=== PATIENT | male | born 1990 | race Caucasian/White ===

== ENCOUNTER 2019-06-16 12:00 | Outpatient (CLI) | payer OTHER, SELFPAY | END 2019-06-16 12:01 | disposition home or self-care (01) | LOC: SLEEP 06-17 13:13 | PROVIDERS: Family Provider Family Medicine; PCP Family Medicine; Visit Provider Family Medicine | DX: G47.33 Obstructive sleep apnea (adult) (pediatric) (principal) | CPT/HCPCS: G0399 ==

== ENCOUNTER 2020-04-15 13:11 | Emergency (ER) | payer OTHER, SELFPAY ==
[2020-04-15 13:15] VITALS: BP 149/87; PULSE 73; RESP 18; TEMP 36.3; O2SAT 98; BMI 40.7
--- NOTE | 2020-04-15 13:27 | W.ED.DENTAL ---
HPI - Dental/Oral General: Chief complaint: Dental/Oral Stated complaint: SEVERE TOOTH PAIN Time Seen by Provider: 04/15/20 13:13 Source: patient Mode of arrival: ambulatory Limitations: no limitations History of Present Illness: MD Complaint: tooth pain Onset (ago): day(s) (3) Duration: constant Severity scale (1-10): 5 Relieving factors: nothing Exacerbating factors: chewing Context: history of dental caries Associated symptoms: Reports no associated symptoms; Denies ear or mastoid pain, fever(s), gum swelling, odynophagia, sore throat or tongue swelling Treatment prior to arrival: none Review of Systems Const: Denies: fever(s) ENMT: Reports: dental pain; Denies: odynophagia or ear or mastoid pain Card: Denies: chest pain Resp: Denies: dyspnea, productive cough or non-productive cough GI: Denies: abdominal pain, nausea, vomiting, dysphagia, diarrhea or constipation Psych: Denies: suicidal ideation or homicidal ideation All/Imm: Denies: tongue swelling Physical Exam Const: COMMON NORMALS: no acute distress, average body habitus, patient oriented x3, no limitations, healthy appearing, alert and well nourished HENMT: COMMON NORMALS: normocephalic and atraumatic HEAD & SCALP: normocephalic and atraumatic FACE & SINUS: no TMJ findings MOUTH: Normal oral and palatal mucosa present, lip normal, tongue normal and Normal salivary glands and ducts present; no trismus, no restricted motion, no thickened frenulum and no TMJ findings TEETH & GINGIVA: Yes abnormal tooth and associated gingiva, Yes caries, Yes poor dentition and Yes other (there is no evidence of abscess such as induration fluctuance or pointing) TEETH & GINGIVA IMAGES: 1. THROAT: posterior oropharynx normal Resp: COMMON NORMALS: normal respiratory effort Cardio: COMMON NORMALS: regular rate and regular rhythm RATE: regular rate RHYTHM: regular rhythm Neuro: COMMON NORMALS: patient oriented x3 SENSORIUM/ORIENTATION: Yes alert Course Vital Signs: Vital signs: Vital Signs Temperature 97.3 F L 04/15/20 13:15 Pulse Rate 73 04/15/20 13:15 Respiratory Rate 18 04/15/20 13:15 Blood Pressure 149/87 04/15/20 13:15 Pulse Oximetry 98 12/12/20 13:15 MDM - Dental/Oral MDM Narrative: Medical decision making narrative: Pt is well appearing non toxic and in no acute distress. Pt has noted dental carries to area highlighting on diagram. there is no evidence of abscess such as induration fluctuance or pointing. there is no evidence of Al's angina there is some associated facial cellulities noted to right side of face. there is no difficulty swallowing no trismus no chest pain fever or shortness of breath. I will start patient on antibiotics and have him follow up with dentist. rad provided Discharge Plan Discharge Patient Disposition: Home Clinical Impression: Dental caries Condition: Stable Prescriptions: New clindamycin HCl 300 mg capsule 300 mg PO BID 7 Days Qty: 14 RF: 0 ibuprofen 800 mg tablet 800 mg PO TID Qty: 30 RF: 0 Discharge Orders: Discharge ED (Routine); Ordered 04/15/20 Ordered By: Billie Gaspar Referrals: Jagdeep Horowitz MD [Primary Care Provider] - Discharge Diet: Advance as tolerated Discharge Activity: Resume usual activity Activity Restrictions/Additional Instructions: Please take antibiotics as prescribed Please take Ibuprofen as needed Please follow up with Dentist as soon as possible Please return to ER with any worsening of symptoms as discussed Coding Level of Care Code ED Compressor Engineer for Arlin Sanders
== END 2020-04-15 13:46 | disposition home or self-care (01) ==
PROVIDERS: Emergency Provider Registered Nurse; PCP Family Medicine
DX: K02.9 Dental caries, unspecified (principal)
CPT/HCPCS: 12345; 99281

== ENCOUNTER → 2021-09-06 15:04 | Outpatient (BNVA) | payer OTHER, SELFPAY | PROVIDERS: PCP Family Medicine; Visit Provider Family Medicine | DX: J02.9 Acute pharyngitis, unspecified (principal) | CPT/HCPCS: 87070 ==

== ENCOUNTER → 2021-09-12 09:38 | Outpatient (BNVA) | payer OTHER, SELFPAY | PROVIDERS: PCP Family Medicine; Visit Provider Family Medicine | DX: E34.9 Endocrine disorder, unspecified (principal) | CPT/HCPCS: 84402; 84403 ==

== ENCOUNTER → 2022-06-18 10:26 | Outpatient (BNVA) | payer OTHER, SELFPAY | PROVIDERS: PCP Family Medicine; Visit Provider Family Medicine | DX: E34.9 Endocrine disorder, unspecified (principal); R21 Rash and other nonspecific skin eruption; E78.5 Hyperlipidemia, unspecified | CPT/HCPCS: 80053; 80061; 84403; 85025 ==

== ENCOUNTER 2022-12-12 09:03 | Outpatient (CLI) | payer OTHER, SELFPAY | END 2022-12-12 09:04 | disposition home or self-care (01) | PROVIDERS: PCP Family Medicine; Visit Provider Podiatrist Foot & Ankle Surgery | DX: B35.1 Tinea unguium (principal) | CPT/HCPCS: 36415; 80053 ==

== ENCOUNTER → 2023-08-04 09:33 | Outpatient (BNVA) | payer OTHER, SELFPAY | PROVIDERS: PCP Family Medicine; Visit Provider Family Medicine | DX: E78.5 Hyperlipidemia, unspecified (principal); E34.9 Endocrine disorder, unspecified; Z00.00 Encounter for general adult medical examination without abnormal findings | CPT/HCPCS: 80053; 80061; 84403; 85025 ==

== ENCOUNTER → 2023-10-13 11:23 | Outpatient (BNVA) | payer OTHER, SELFPAY | PROVIDERS: PCP Family Medicine; Visit Provider Nurse Practitioner Family | DX: J02.9 Acute pharyngitis, unspecified (principal) | CPT/HCPCS: 87880 ==

== ENCOUNTER → 2024-01-02 07:50 | Outpatient (BNVA) | payer OTHER, SELFPAY | PROVIDERS: PCP Family Medicine; Visit Provider Family Medicine | DX: E34.9 Endocrine disorder, unspecified (principal) | CPT/HCPCS: 80053; 84403; 84439; 84443 ==

== ENCOUNTER 2024-01-15 07:30 | Outpatient (RCR) | payer OTHER, SELFPAY | END 2024-02-02 23:59 | disposition home or self-care (01) | LOC: SPT 07:30 | PROVIDERS: PCP Family Medicine; Visit Provider Chiropractor | DX: M54.50 Low back pain, unspecified (principal) | CPT/HCPCS: 97032; 97110; 97161 ==

== ENCOUNTER → 2024-03-30 08:51 | Outpatient (BNVA) | payer OTHER, SELFPAY | PROVIDERS: PCP Family Medicine | DX: J02.9 Acute pharyngitis, unspecified (principal) | CPT/HCPCS: 87880 ==

== ENCOUNTER 2025-01-18 19:49 | Emergency (ER) | payer OTHER, SELFPAY ==
--- OUTSIDE RECORDS SUMMARY | 2025-01-18 19:55 | XMS_ITS | Clinical Summary ---
Author Organization [facility] Address 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
--- OUTSIDE RECORDS SUMMARY | 2025-01-18 19:55 | XMS_ITS | Encounter Summary ---
Author Organization [facility] Address [address] [place] [address] Care Team Providers Care Property Adjuster Name Role Phone Unavailable Primary Care Provider Unavailabl e Encounter Details Date Type Department Care Team (Latest Contact Info) Description 03/28/2000 Outpatient Historical [facility] Medicine- [address] [address] Toro Ling MD [address] [place] [address] Streptococcal sore throat (Primary Dx) Social History Tobacco Use Types Packs/Day Years Used Date Smoking Tobacco: Never Assessed Sex and Gender Information Value Date Recorded Sex Assigned at Not on file 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
[2025-01-18 20:07] VITALS: BP 136/87; PULSE 75; RESP 20; TEMP 36.8; O2SAT 100; BMI 39.5
--- NOTE | 2025-01-18 20:11 | ECG_ITS ---
[facility]: 2025[facility]18 Pat Name: Dean Sheldon Department: Room: Gender: Male Rn Or Lpn: : 1990 Requested By: Luly Salinas Order Number: [id number] Florinda MD: Trish Dillard M.D. Measurements Intervals Paradox Rate: 75 P: 33 PA: 150 QRS: 6 QRSD: 113 T: 25 QT: 362 QTc: 406 Interpretive Statements SINUS RHYTHM MODERATE INTRAVENTRICULAR CONDUCTION DELAY [110+ ms QRS DURATION] No previous ECG available for comparison Electronically Signed On 01-19-2025 13:49:45 CDT by Trish Dillard M.D. [email or web address]
--- NOTE | 2025-01-18 20:13 | XRR_ITS ---
PROCEDURE INFORMATION: Exam: XR Chest Exam date and time: 01/18/2025 8:20 PM Age: 34 years old Clinical indication: Shortness of breath TECHNIQUE: Imaging protocol: Radiologic exam of the chest. Views: 1 view. COMPARISON: No relevant prior studies available. FINDINGS: Lungs: Unremarkable. No consolidation. Pleural spaces: Unremarkable. No pleural effusion. No pneumothorax. Heart/Mediastinum: Unremarkable. No cardiomegaly. Bones/joints: Unremarkable. XR/XR chest 1V portable [id number] IMPRESSION: No acute findings.
--- NOTE | 2025-01-18 20:28 | ED_ITS ---
HPI - SOB/Dyspnea 2 General: Chief Complaint: Shortness of Breath/Dyspnea Stated Complaint: SOB Time Seen by Provider: 01/18/25 19:50 History of Present Illness: HPI Narrative: 34-year-old male with history of depress ion, anxiety, GERD, obesity, hyperlipidemia who presents the emergency room with shortness of breath. He says he had been working on some floats and then afterwards started feeling short of breath and having a tightness in his chest. He says it is intermittent and does not seem to be brought on by anything. No fevers. No cough. No swelling. No abdominal pain. No nausea or vomiting. No altered mental status. Related Data Home Medications ?Medication ?Instructions ?Recorded ?Confirmed ibuprofen 200 mg capsule 200 mg PO Q6H PRN 01/01/24 0 09/05/24 Previous Rx's ?Medication ?Instructions ?Recorded omeprazole 40 mg capsule,delayed 40 mg PO DAILY #90 ca ps 02/05/24 release propranolol 10 mg tablet 10 mg PO BID #180 tabs 02/04 testosterone cypionate 200 mg/mL 200 mg IM .Q 2 weeks #4 mL 02/05/24 intramuscular oil cephalexin 500 mg capsule 500 mg PO Q8H 7 days #21 cap s 09/05/24 Allergies Allergy/AdvReac Type Severity Reaction Status Date / Time No Known Allergies Allergy Verified 09/05/24 17:53 Review of Systems 2 Narrative: Constitutional symptoms: Negative except as documented in HPI. Skin symptoms: Negative except as documented in HPI. Eye symptoms: Negative except as documented in HPI. ENMT symptoms: Negative except as documented in HPI. Respiratory symptoms: Negative except as documented in HPI. Cardiovascular symptoms: Negative except as documented in HPI. Gastrointestinal symptoms: Negative except as documented in HPI. Genitourinary symptoms: Negative except as documented in HPI. Musculoskeletal symptoms: Negative except as documented in HPI. Neurologic symptoms: Negative except as documented in HPI. Psychiatric symptoms: Negative except as documented in HPI. Endocrine symptoms: Negative except as documented in HPI. PFSH ED 2 PFSH: Medical History (Updated 01/18/25 @ 22:09 by Luly Cortes MD) Appendicitis Moderate major depression Anxiety GERD (gastroesophageal reflux disease) Obesity (BMI 35.0-39.9 without comorbidity) Seasonal allergies Hyperlipidemia Hypotestosteronemia Social History (Reviewed 09/05/24 @ 18:24 by JAMES Anton Smoking and tobacco/nicotine status: never used tobacco/nicotine Alcohol intake: current Alcohol intake frequency: holidays/special occasions only Alcohol type: beer Substance/Drug Use: never Physical Exam 2 Narrative: EXAM NARRATIVE: General: Alert, no acute distress. Skin: Warm, dry. Head: Normocephalic, atraumatic. Neck: Supple, trachea midline. Eye: Extraocular movements are intact. Ears, nose, mouth and throat: mucosa moist. Cardiovascular: Regular, Normal peripheral perfusion. Respiratory: Lungs are clear to auscultation, respirations are non-labored, breath sounds are equal, Symmetrical chest wall expansion. Gastrointestinal: Soft, Nontender, Non distended Musculoskeletal: Normal ROM, no deformity. Neurological: Alert and oriented, No focal neurological deficit observed. Psychiatric: Cooperative, appropriate mood & affect. Course 2 Vital Signs: Vital signs: Vital Signs Temperature 98.2 F 01/18/25 20:07 Pulse Rate 66 01/18/25 21:20 Respiratory Rate 16 01/18/25 21:20 Blood Pressure 142/86 01/18/25 21:20 Pulse Oximetry 97 01/18/25 21:20 Oxygen Delivery Me thod Room Air 01/18/25 21:20 MDM - SOB/Dyspnea Medical Decision Making Differential diagnosis for patient with shortness of breath includes but is not limited to and based on the above HPI, review of systems and physical exam: Pneumonia. Bronchitis. Asthma or COPD with acute exacerbation. Acute coronary syndrome / IA. Pulmonary embolism. Anxiety. Congestive heart failure. Viral infections including influenza and Covid-19. Atrial fibrillation. Anxiety. Pleural effusion. Pneumothorax. Orders placed to evaluate differential diagnosis based on the above differential, HPI and physical exam EKG: Time 2004. Rate 75. Normal sinus rhythm, No ST-T changes, no ectopy, normal OH & QRS intervals, This was reviewed and interpreted by myself the ER physician at 2009 Chest x-ray: No acute process. No infiltrate. No pneumothorax. This was reviewed and interpreted by myself the emergency room physician. I also reviewed the radiology report. Lab Review: Laboratory results were reviewed and interpreted by myself the emergency room physician. No leukocytosis. No anemia. No renal failure. Troponin is negative. proBNP is negative. D-dimer is negative so no PE. Flu COVID and RSV are negative I reviewed the patient's medical record. 34-year-old male with history of depression, anxiety, GERD, obesity, hyperlipidemia Reexamination: Patient remained stable. No increased work of breathing. No altered mental status. No focal motor deficits. Has had no oxygen requirements. No increased work of breathing at the time of discharge Assessment and plan: Dyspnea ?No clear cause for his dyspnea. - Discharged home - Discussed plan with patient. Answered any questions. - Evaluation and treatment of this problem were appropriate in the emergency setting. Lab Data 01/18/25 20:47 01/18/25 20:47 Labs/Radiology: Radiology Impressions Chest X-Ray 01/18/25 20:13 IMPRESSION: No acute findings. Laboratory Results WBC 9.41 10^3/uL (3.29-11.43) 01/18/25 20:47 RBC 4.31 10^6/uL (3.85-5.65) 01/18/25 20:47 Hgb 12.70 g/dL (11.27-16.99) 01/18/25 20:47 Hct 36.0 % (37-53) L 01/18/25 20:47 MCV 83.5 fl (82-101) 01/18/25 20:47 MCH 29.5 pg (27-33) 01/18/25 20:47 MCHC 35.3 g/dL (30-55) 01/18/25 20:47 RDW 11.8 % (12.1-15.1) L 01/18/25 20:47 Plt Count 325 10^3/cmm (157-399) 01/18/25 20:47 MPV 9.7 fL (7.4-10.4) 01/18/25 20:47 Neut % (Auto) 60.7 % 01/18/25 20:47 Lymph % (Auto) 30.6 % 01/18/25 20:47 [place] % (Auto) 6.1 % 01/18/25 20:47 Eos % (Auto) 1.5 % 01/18/25 20:47 Baso % (Auto) 0.9 % 01/18/25 20:47 Neut # (Auto) 5.72 10^3/uL (1.8-7.7) 01/18/25 20:47 Lymph # (Auto) 2.9 10^3/uL (0.8-4.8) 01/18/25 20:47 [place] # (Auto) 0.6 10^3/uL (0.2-0.9) 01/18/25 20:47 Eos # (Auto) 0.1 10^3/uL (0.0-0.8) 01/18/25 20:47 Baso # (Auto) 0.1 10^3/uL (0.0-0.1) 01/18/25 20:47 Nucleated RBC % (auto) 0 % 01/18/25 20:47 Nucleated RBCs # 0.0 /100WBC 01/18/25 20:47 D-Dimer 0.29 ug/mLFEU (0-0.59) 01/18/25 20:47 Sodium 142 mmol/L (136-145) 01/18/25 20:47 Potassium 4.0 mmol/L (3.5-5.1) 01/18/25 20:47 Chloride 105 mmol/L (98-107) 01/18/25 20:47 Carbon Dioxide 23 mmol/L (22-29) 01/18/25 20:47 Anion Gap 18.0 (5-19) 01/18/25 20:47 BUN 15 mg/dL (6-20) 01/18/25 20:47 Creatinine 0.7 mg/dL (0.7-1.2) 01/18/25 20:47 GFR Calculation 127.6 mL/min (90-130) 01/18/25 20:47 Glucose 106 mg/dL (65-115) 01/18/25 20:47 Calculated Osmolality 295 mOsm/kg (285-295) 01/18/25 20:47 Lactic Acid 1.2 mmol/L (0.5-2.2) 01/18/25 20:47 Calcium 10.2 mg/dL (8.5-10.5) 01/18/25 20:47 Total Bilirubin 0.2 mg/dL (0.15-1.2) 01/18/25 20:47 AST 17 U/L (0-40) 01/18/25 20:47 ALT 42 U/L (0-41) H 01/18/25 20:47 Alkaline Phosphatase 78 U/L (40-130) 01/18/25 20:47 Troponin T Baseline < 6 ng/L (0-15) 01/18/25 20:47 NT-Pro-B Natriuret Pep < 36 pg/mL (0-125) 01/18/25 20:47 Total Protein 7.3 g/dL (6.6-8.7) 01/18/25 20:47 Albumin 4.7 g/dL (3.5-5.2) 01/18/25 20:47 Globulin 2.6 g/dL (1.3-4.6) 01/18/25 20:47 Influenza A (PCR) Negative (Negative) 01/18/25 21:17 Influenza Type B (PCR) Negative (Negative) 01/18/25 21:17 RSV (PCR) Negative (Negative) 01/18/25 21:17 SARS-CoV-2 (PCR) Negative (Negative) 01/18/25 21:17 All radiology interpretation(s) finalized by discharge Discharge Plan Discharge Patient Disposition: Home Clinical Impression: Shortness of breath Condition: Stable Prescriptions: No Action cephalexin 500 mg capsule 500 mg PO Q8H 7 Days Qty: 21 0RF ibuprofen 200 mg capsule 200 mg PO Q6H PRN propranolol 10 mg tablet 10 mg PO BID Qty: 180 1RF omeprazole 40 mg capsule,delayed release(DR/EC) 40 mg PO DAILY Qty: 90 1RF testosterone cypionate 200 mg/mL oil 200 mg IM .Q 2 weeks Qty: 4 3RF Discharge Orders: Discharge ED (Routine); Ordered 01/18/25 Ordered By: Luly Cortes Referrals: Los Early MD [Primary Care Provider, Family Practice] Discharge Diet: Usual diet Discharge Activity: Increase activity as tolerated Patient Instructions: Dyspnea (ED), Opioid Safety, Pain Management, Patient Portal & [place] Instructions Activity Restrictions/Additional Instructions: Thank you for choosing [facility] for your healthcare needs today. You have been screened and evaluated and felt safe for discharge. Health conditions do change or evolve sometimes and as such it is important that you follow up with your Primary Doctor to be re checked, 3-5 days is a general good time frame for follow up. You are always welcome to return to the ED for re assessment if your symptoms are worsening or you have new concerns Print Language: Gambian Coding Level of Care Code ED Payroll And Benefits Coordinator for Arlin Sanders
[2025-01-18 21:18] LABS: Hematocrit 36.0 % (37-53); Hemoglobin 12.70 g/dL (11.27-16.99); Mean Corpuscular HGB Conc 35.3 g/dL (30-55); Mean Corpuscular Hemoglobin 29.5 pg (27-33); Mean Corpuscular Volume 83.5 fl (82-101); Nucleated Red Blood Cells % 0 %; Platelet Count 325 10^3/cmm (157-399); Red Blood Count 4.31 10^6/uL (3.85-5.65); White Blood Count 9.41 10^3/uL (3.29-11.43)
[2025-01-18 21:20] VITALS: BP 142/86; PULSE 66; RESP 16; O2SAT 97
[2025-01-18 21:38] LABS: Lactic Sepsis W/Reflex 1.2 mmol/L (0.5-2.2)
[2025-01-18 21:45] LABS: Troponin(5th) Baseline < 6 ng/L (0-15)
[2025-01-18 21:52] LABS: Alanine Aminotransferase 42 U/L (0-41); Albumin Level 4.7 g/dL (3.5-5.2); Alkaline Phosphatase 78 U/L (40-130); Anion Gap 18.0 (5-19); Aspartate Amino Transferase 17 U/L (0-40); Blood Urea Nitrogen 15 mg/dL (6-20); Calcium 10.2 mg/dL (8.5-10.5); Carbon Dioxide 23 mmol/L (22-29); Chloride 105 mmol/L (98-107); Creatinine Clr Calc Pharmacy 229.1450; Globulin 2.6 g/dL (1.3-4.6); Glucose 106 mg/dL (65-115); NT Pro B Type Natriuretic Pept < 36 pg/mL (0-125); Osmolality Calculated 295 mOsm/kg (285-295); Potassium 4.0 mmol/L (3.5-5.1); Sodium 142 mmol/L (136-145); Total Protein 7.3 g/dL (6.6-8.7)
[2025-01-18 22:08] LABS: Respiratory Syncytial Virus Ce NEGATIVE (Negative); SARS-CoV-2 PCR NEGATIVE (Negative)
[2025-01-18 22:34] VITALS: BP 120/75; PULSE 58; RESP 16; O2SAT 99
== END 2025-01-18 22:34 | disposition home or self-care (01) ==
PROVIDERS: Emergency Provider Emergency Medicine; PCP Family Medicine
DX: R06.02 Shortness of breath (principal); Z11.52 Encounter for screening for COVID-19; E78.5 Hyperlipidemia, unspecified
CPT/HCPCS: 36415; 71045; 80053; 83605; 83880; 84484; 85025; 85378; 87637; 93005; 99285

== ENCOUNTER → 2025-02-17 08:52 | Outpatient (BNVA) | payer OTHER, SELFPAY | PROVIDERS: PCP Family Medicine; Visit Provider Family Medicine | DX: E34.9 Endocrine disorder, unspecified (principal) | CPT/HCPCS: 84403 ==